=== PATIENT | female | born 1990 | race African-American/Black ===

== ENCOUNTER 2016-12-22 20:45 | Emergency (ER) | payer OTHER ==
[2016-12-22 23:15] VITALS: BP 119/76
== END 2016-12-22 23:15 | disposition home or self-care (01) ==
LOC: ED 20:45
DX: S61.216A Laceration without foreign body of right little finger without damage to nail, initial encounter (principal); K21.9 Gastro-esophageal reflux disease without esophagitis; Y04.0XXA Assault by unarmed brawl or fight, initial encounter; Y93.89 Activity, other specified; Y92.89 Other specified places as the place of occurrence of the external cause; Y99.8 Other external cause status
CPT/HCPCS: A4570; J2001; Q0092